=== PATIENT | male | born 1960 | race Caucasian/White ===

== ENCOUNTER 2021-05-12 16:53 | Outpatient (CLI) | payer OTHER | END 2021-05-12 18:00 | disposition home or self-care (01) | LOC: LAB 16:53 | PROVIDERS: ATTEND Specialist | DX: R05 Cough (principal); R06.02 Shortness of breath; Z03.818 Encounter for observation for suspected exposure to other biological agents ruled out; Z20.828 Contact with and (suspected) exposure to other viral communicable diseases ==